=== PATIENT | male | born 1950 | race Two or more races ===

== ENCOUNTER 2018-06-10 20:08 | Emergency (ER) | payer MEDICARE ==
[~2018-06-10] VITALS: Ht 177.8 cm; Wt 91.0 kg
[2018-06-11 00:25] LABS: BASOPHILS % 0.1 % (0.0-2.0); EOSINOPHILS % 1.6 % (0.0-5.0); HEMATOCRIT. 42.2 % (42.0-52.0); HEMOGLOBIN. 13.9 g/dL (14.0-18.0); LYMPHOCYTES % 16.9 % (20.0-50.0); MEAN CORPUSCULAR HEMOGLOBIN 29.1 pg (28.0-32.0); MEAN CORPUSCULAR VOLUME 88.1 fL (80.0-94.0); MEAN PLATELET VOLUME 8.1 fl (7.4-10.4); MONOCYTES % 13.3 % (2.0-8.0); NEUTROPHILS % 68.1 % (40.0-76.0); PLATELET 113 x1000/uL (130-400); RED BLOOD CELL COUNT 4.79 mill/uL (4.7-6.1); RED CELL DISTRIBUTION WIDTH 13.2 % (11.6-14.6)
[2018-06-11 00:29] LABS: CHLORIDE 102 mEq/L (98-107)
[2018-06-11 00:32] LABS: INR 1.1; PROTHROMBIN TIME 11.1 sec (9.1-11.1)
[2018-06-11 00:34] LABS: ETHANOL BLOOD < 10 mg/dL
[2018-06-11 05:10] VITALS: BP 118/76
== END 2018-06-11 07:33 | disposition home or self-care (01) ==
LOC: ER 20:08
DX: R55 Syncope and collapse (principal); I12.9 Hypertensive chronic kidney disease with stage 1 through stage 4 chronic kidney disease, or unspecified chronic kidney disease; N18.9 Chronic kidney disease, unspecified
CPT/HCPCS: 36415; 71045; 83880; 84484; 99284